=== PATIENT | female | born 1995 | race African-American/Black ===

== ENCOUNTER 2022-08-04 12:17 | Emergency (ER) | payer MEDICARE ==
[~2022-08-04] VITALS: Ht 170.2 cm; Wt 66.7 kg
[2022-08-04] MEDS ORDERED: SINGULAIR10 MG PO (12:53)
== END 2022-08-04 14:38 | disposition home or self-care (01) ==
LOC: ER 12:25
DX: R50.9 Fever, unspecified (principal); J02.9 Acute pharyngitis, unspecified; J30.2 Other seasonal allergic rhinitis
CPT/HCPCS: 83518; 87070; 99283